=== PATIENT | female | born 1980 | race African-American/Black ===

== ENCOUNTER 2019-02-02 16:57 | Emergency (ER) | payer MEDICAID, OTHER ==
[~2019-02-02] VITALS: Ht 165.1 cm; Wt 70.0 kg
[~2019-02-02 16:57] MED LIST: PARO-66
[2019-02-02] MEDS ORDERED: SODIUM CHLORIDE 0.9% 1,000 ML IV ONE (18:31)
[2019-02-02] MEDS ORDERED: ONDANSETRON HCL 4MG/2ML INJ IV STA (18:31)
[2019-02-02] MEDS ORDERED: MECLIZINE 25MG TABLET PO ONE (18:45)
[2019-02-02 19:03] LABS: HCG SCREEN NEGATIVE
[2019-02-02 19:04] LABS: BASOPHILS % 0.7 % (0.0-2.0); HEMATOCRIT. 43.7 % (36.0-48.0); HEMOGLOBIN. 14.4 g/dL (12.0-16.0); LYMPHOCYTES % 46.1 % (20.0-50.0); MEAN CORPUSCULAR HEMOGLOBIN 28.9 pg (28.0-32.0); MEAN CORPUSCULAR VOLUME 87.8 fL (81.0-99.0); MEAN PLATELET VOLUME 7.6 fl (7.4-10.4); MONOCYTES % 6.1 % (2.0-8.0); NEUTROPHILS % 43.1 % (40.0-76.0); PLATELET 362 x1000/uL (130-400); RED BLOOD CELL COUNT 4.98 mill/uL (4.2-5.4)
[2019-02-02 19:06] LABS: CHLORIDE 106 mEq/L (98-107)
[2019-02-02 21:22] VITALS: BP 112/61
== END 2019-02-02 21:20 | disposition home or self-care (01) ==
LOC: ER 16:57
DX: R42 Dizziness and giddiness (principal); F41.9 Anxiety disorder, unspecified; F32.9 Major depressive disorder, single episode, unspecified; E11.9 Type 2 diabetes mellitus without complications; F12.10 Cannabis abuse, uncomplicated
CPT/HCPCS: 36415; 71045; 80053; 82962; 84484; 84703; 85025; 93005; 96361; 96374; 99284; J2405; J7030; J8597; Z7610